=== PATIENT | female | born 1960 | race Caucasian/White ===

== ENCOUNTER 2018-05-26 14:35 | Emergency (ER) | payer OTHER ==
[2018-05-26 15:21] VITALS: BP 139/70
--- NOTE | 2018-05-26 16:09 | UC ---
Upper Extremity HPI - HPI Summary HPI Summary: 57 year old female presents with left wrist pain after falling while skiing onto an outstretched arm. Pain worsens with any movement. ROM limited by pain. Denies numbness or tingling. - History of Current Complaint Chief Complaint: UCUpperExtremity Stated Complaint: LT WRIST INJURY Time Seen by Provider: 05/26/18 15:49 Pain Intensity: 1 - Allergies/Home Medications Allergies/Adverse Reactions: Allergies Allergy/AdvReac Type Severity Reaction Status Date / Time Sulfa (Sulfonamide Allergy Nausea And Verified 05/26/18 15:12 Antibiotics) Vomiting Home Medications: Home Medications Citalopram TAB* [CeleXA TAB*] 10 mg PO DAILY 05/26/18 [History Confirmed ] Ibuprofen TAB* [Advil TAB*] 400 mg PO Q6H PRN 05/26/18 [History Confirmed ] LORazepam TAB(*) [Ativan 0.5 MG TAB (*)] 0.5 mg PO BEDTIME PRN 05/26/18 [ History Confirmed 05/26/18] SUMAtriptan TAB* [Imitrex TAB*] 25 mg PO SEE INSTRUCTIONS PRN 05/26/18 [History Confirmed 05/26/18] PMH/Surg Hx/FS Hx/Imm Hx Previously Healthy: Yes Neurological History: Migraine Psychological History: Anxiety, Depression - Surgical History Surgical History: Yes Surgery Procedure, Year, and Place: , 1992 - Family History Known Family History: Positive: Non-Contributory - Social History Occupation: Employed Full-time Lives: With Family Alcohol Use: Occasionally Substance Use Type: None Smoking Status (MU): Never Smoked Tobacco Review of Systems All Other Systems Reviewed And Are Negative: Yes Skin: Negative: Bruising Motor: Negative: Weakness Neurovascular: Negative: Decreased Sensation Musculoskeletal: Positive: Arthralgia - See HPI, Decreased ROM Physical Exam - Summary Physical Exam Summary: GENERAL APPEARANCE: Well developed, well nourished, alert and cooperative, and appears to be in mild discomfort holding left forearm in position of comfort. HEAD: Atraumatic. normocephalic. NECK: Neck supple, non-tender. CARDIAC: Normal S1 and S2. No S3, S4 or murmurs. Rhythm is regular. There is no peripheral edema, cyanosis or pallor. Extremities are warm and well perfused. Capillary refill is less than 2 seconds. LUNGS: Clear to auscultation and percussion without rales, rhonchi, wheezing or diminished breath sounds. ABDOMEN: Positive bowel sounds. Soft, nondistended, nontender. No guarding or rebound. No masses or hepatosplenomegally. MUSKULOSKELETAL: Tenderness of the distal left radius and ulna without ecchymosis or gross deformity. Left wrist ROM limited by pain. Cloth Measurer strength symmetrical and intact. Peripheral pulses normal and intact. Capillary refill < 2 seconds. BACK: Examination of the spine reveals normal gait and posture, no spinal deformity or tenderness, decreased range of motion or muscular spasm. NEUROLOGICAL: Strength and sensation symmetric and intact. SKIN: Genereal skin exam reveals normal color, texture and turgor. Triage Information Reviewed: Yes Vital Signs: Initial Vital Signs Temp 98.3 F 05/26/18 15:14 Pulse 92 05/26/18 15:14 Resp 15 05/26/18 15:14 BP 139/70 05/26/18 15:14 Pulse Ox 100 05/26/18 15:14 Vital Signs Reviewed: Yes Procedures - Procedure Summary Procedure Summary: Procedure note: Splint application left forearm Risks, benefits and alternatives were discussed with patient. Verbal consent given by patient. Patient states understanding of the procedure being performed. Patient identity confirmed verbally with patient and arm band. A volar short arm splint using Orthoglass was applied by myself to the left forearm. The splinted body part was neurovascularly unchanged following the procedure. Patient tolerated the procedure well with no immediate complications. Splint care, anticipatory guidance, and warning symptoms were reviewed with the patient. Diagnostics - Radiology No standard instances Radiology Interpretation Completed By: Radiologist Summary of Radiographic Findings: Patient Name: DILLON CAMILO . Ordering Physician: Vikash Garcia NP Acct.#: [id number]. : 1960 Age: 57 Sex: F Location: [facility]. Exam Date: 1537 ADM Status: REG ER. Order Information: WRIST LEFT 3+ VWS. Accession Number: [id number]. CPT: 66317. HISTORY: pain s/p fall on outstretched arm. COMPARISONS: None. VIEWS: 3 , Frontal, lateral, and oblique views of the left wrist. FINDINGS: BONE DENSITY: Normal. BONES: There is a slightly impacted and comminuted fracture of the distal radial. metaphysis articular extension. There is a nondisplaced fracture of the styloid process of. the ulna. JOINTS: There is no arthropathy. ALIGNMENT: There is no dislocation. SOFT TISSUES: Unremarkable. OTHER FINDINGS: None. IMPRESSION: FRACTURES OF THE DISTAL RADIAL METAPHYSIS AND STYLOID PROCESS OF THE ULNA. Upper Extremity Course/Dx - Course Course Of Treatment: 57 year old female presents with left wrist pain after falling while skiing onto an outstretched arm. Pain worsens with any movement. ROM limited by pain. Denies numbness or tingling. Exam revealed tenderness of the distal left radius and ulna without ecchymosis or gross deformity. Left wrist ROM limited by pain. Sensation intact distally. X-ray showed a non- displaced fracture of the distal radius and non-displaced fracture of the styloid process of the ulna. [place] was placed in a volar short arm splint. A follow up appointment was arranged with orthopedic surgery for tomorrow at 9:00 am. She was provided prescription for naproxen and hydrocodone 5/325 for pain management. Discussed RICE as well as splint care with patient. Warning symptoms discussed. Verbalizes understanding and agrees with POC. - Differential Dx/Diagnosis Differential Diagnosis/HQI/PQRI: Contusion, Fracture (Closed), Strain, Sprain Provider Diagnosis: Nondisplaced fracture of distal end of left radius, Nondisplaced fracture of left ulna styloid process, initial encounter for closed fracture Discharge - Sign-Out/Discharge Documenting (check all that apply): Patient Departure All imaging exams completed and their final reports reviewed: Yes - Discharge Plan Condition: Stable Disposition: HOME Prescriptions: Hydrocodone/Acetaminophen [Hydrocodone-Acetamin 5-325 mg] 1 each PO Q8HR PRN # 12 tablet MDD 3 PRN Reason: Severe Pain Naproxen [Naproxen 500 mg tab] 500 mg PO Q12HR #30 tablet Patient Education Materials: Wrist Fracture in Adults (ED), Splint Care (ED) Referrals: Pranay Doty MD [Primary Care Provider] - Jose A Dickey MD [Medical Doctor] - 1 Day (You have an appointment for 9:00 am tomorrow.) Additional Instructions: The x-ray performed in the clinic today showed a fracture of the distal radius and styloid process of the ulna. Wear the splint that was applied in the clinic today in place at all times. Be sure to keep it dry. Rest the arm as much as possible. Avoid heavy lifting and strenuous activities. Apply ice for 15-20 minutes at least 4 times a day. Keep the arm elevated at the level of your hear to help reduce swelling. Take naproxen 500 mg 1 tab every 12 hours with food for pain. May take hydrocodone-acetaminophen 5 mg/325 mg 1 tab every 8 hours as needed for severe pain. This will cause drowsiness so do not take and drive or operate machinery. Follow up with Dr. Dickey, orthopedic surgery, tomorrow at 9:00 am. Seek immediate medical attention in the emergency room if you have pain that is not managed with pain medication, you have numbness or tingling in hand or fingers, the hand or fingers turn pale or blue in color, or any worsening of symptoms. - Billing Disposition and Condition Condition: STABLE Disposition: Home
== END 2018-05-26 16:39 | disposition home or self-care (01) ==
LOC: UCCORT 14:35
DX: S52.502A Unspecified fracture of the lower end of left radius, initial encounter for closed fracture (principal); S52.615A Nondisplaced fracture of left ulna styloid process, initial encounter for closed fracture; V00.321A Fall from snow-skis, initial encounter; Y93.23 Activity, snow (alpine) (downhill) skiing, snowboarding, sledding, tobogganing and snow tubing; Y92.9 Unspecified place or not applicable; Z88.2 Allergy status to sulfonamides; G43.909 Migraine, unspecified, not intractable, without status migrainosus; F41.9 Anxiety disorder, unspecified; F32.9 Major depressive disorder, single episode, unspecified
CPT/HCPCS: 99212; G0463